=== PATIENT | female | born 1955 | race Caucasian/White ===

== ENCOUNTER 2022-11-14 17:22 | Emergency (ER) | payer MEDICARE ==
[2022-11-14 18:05] LABS: BASOPHILS % (AUTO) 0.2 %; EOSINOPHILS # (AUTO) 0.1 10^3/uL (0.0-0.7); EOSINOPHILS % (AUTO) 0.4 %; HCT - HEMATOCRIT 45.9 % (37.0-47.0); HGB - HEMOGLOBIN 15.7 g/dL (12.0-16.0); LYMPHOCYTES # (AUTO) 1.9 10^3/uL (1.5-3.5); LYMPHOCYTES % (AUTO) 13.7 %; MEAN CORPUSCULAR HEMOGLOBIN 29.4 pg (27.0-31.0); MEAN CORPUSCULAR HGB CONC 34.2 g/dL (32.0-36.0); MEAN PLATELET VOLUME 9.9 fL (7.9-10.8); MONOCYTES # (AUTO) 0.7 10^3/uL (0.0-1.0); MONOCYTES % (AUTO) 5.3 %; NEUTROPHILS # (AUTO) 11.2 10^3/uL (1.5-6.6); NEUTROPHILS % (AUTO) 80.1 %; PLT - PLATELET COUNT 268 10^3/uL (130-450); RED BLOOD COUNT 5.34 10^6/uL (4.20-5.40); RED CELL DISTRIBUTION WIDTH 12.5 % (12.0-15.0); WHITE BLOOD COUNT 13.9 x10^3/uL (4.8-10.8)
[2022-11-14 18:07] LABS: BILIRUBIN,URINE NEGATIVE (NEGATIVE); GLUCOSE, URINE (UA) NEGATIVE (NEGATIVE); KETONES,URINE (UA) TRACE mg/dL (NEGATIVE); LEUKOCYTE ESTERASE, URINE SMALL (NEGATIVE); NITRITE,URINE NEGATIVE (NEGATIVE); OCCULT BLOOD,URINE TRACE-INTA (NEGATIVE); PH,URINE 5.5 PH (5.0-7.5); PROTEIN,URINE NEGATIVE (NEGATIVE); UROBILINOGEN,URINE 0.2 (NORMAL) E.U./dL (NORMAL)
[2022-11-14 18:09] LABS: CLARITY,URINE CLEAR (CLEAR)
[2022-11-14 18:18] LABS: BACTERIA,URINE Rare /HPF (None Seen); EPITHELIAL CELLS,UR FEW Transitional /HPF (<= Few); RBC,URINE 0-5 /HPF (0-5); SQUAMOUS EPITHELIAL CELL,UR FEW Squamous (<= Few)
[2022-11-14 18:18] LABS: ALBUMIN 4.8 g/dL (3.2-5.5); ALBUMIN/GLOBULIN RATIO 1.8 (1.0-2.2); BILIRUBIN,TOTAL 1.9 mg/dL (0.2-1.0); CALCIUM 11.3 mg/dL (8.5-10.3); CREATININE 0.7 mg/dL (0.6-1.3); POTASSIUM 3.9 mmol/L (3.5-4.5); TOTAL PROTEIN 7.4 g/dL (6.4-8.9)
[2022-11-14] MEDS ORDERED: HYDROmorphone 1 MG/ML CARPUJECT IVP STA (19:47)
[2022-11-14] MEDS ORDERED: ONDANSETRON 4 MG/2 ML VIAL IVP STA (19:47)
[2022-11-14] MEDS ORDERED: SODIUM CHLORIDE 0.9% 1,000 ML IV STA (19:47)
--- NOTE | 2022-11-14 19:49 | ED Physician Documentation ---
History of Present Illness - Stated complaint Stated Complaint: ABD PX/FEVER - Chief complaint Chief Complaint: Abd Pain - Additonal information Additional information: Our CT scanner is down is frustrated. 67-year-old female presents emergency department for evaluation 67-year-old male presents emergency department for evaluation of acute right lower quadrant abdominal pain. Symptoms began 24 hours is generalized but is now settled in the right lower quadrant. Low-grade temperature elevations but no fevers. Some nausea but no vomiting. No diarrhea. No urinary symptoms. Past surgical history positive for previous hysterectomy. She does have a history of diverticulitis without perforation. Patient takes losartan and Wellbutrin. No anticoagulation. Review of Systems Constitutional: reports: Fever Cardiac: reports: Reviewed and negative Respiratory: reports: Reviewed and negative GI: reports: Abdominal Pain, Nausea. denies: Vomiting : reports: Reviewed and negative PD PAST MEDICAL HISTORY - Present Medications Home Medications: Ambulatory Orders Medication Instructions Recorded Confirmed Losartan [Cozaar] 10 mg PO DAILY 11/14/22 11/14/22 buPROPion [Wellbutrin Sr] 150 mg PO BID 11/14/22 11/14/22 - Allergies Allergies/Adverse Reactions: Allergies Allergy/AdvReac Type Severity Reaction Status Date / Time Sulfa (Sulfonamide Allergy Unknown Verified 11/14/22 17:47 Antibiotics) PD ED PE NORMAL - General General: Alert and oriented X 3, No acute distress - Cardiac Cardiac: RRR - Respiratory Respiratory: No respiratory distress, Clear bilaterally - Abdomen Abdomen: Normal bowel sounds, Soft. No: Non tender (Rebound tenderness to the right lower quadrant. Equivocal McBurney's. No CVA tenderness.) - Back Back: No CVA TTP - Derm Derm: Normal color, Warm and dry - Extremities Extremities: No deformity - Neuro Neuro: Alert and oriented X 3 Eye Opening: Spontaneous Motor: Obeys Commands Verbal: Oriented GCS Score: 15 Results - Vitals Vitals: Vital Signs - 24 hr 11/14/22 17:44 Temperature 36.6 C Heart Rate 120 H Respiratory 20 Rate Blood Pressure 119/73 O2 Saturation 97 Oxygen O2 Source Room air - Labs Labs: Laboratory Tests 11/14/22 11/14/22 11/14/22 17:58 18:00 18:00 WBC 13.9 H RBC 5.34 Hgb 15.7 Hct 45.9 MCV 86.0 MCH 29.4 MCHC 34.2 RDW 12.5 Plt Count 268 MPV 9.9 Neut # (Auto) 11.2 H Lymph # (Auto) 1.9 [place] # (Auto) 0.7 Eos # (Auto) 0.1 Baso # (Auto) 0.0 Absolute Nucleated RBC 0.00 Nucleated RBC % 0.0 Sodium 138 Potassium 3.9 Chloride 102 Carbon Dioxide 29 Anion Gap 7.0 BUN 11 Creatinine 0.7 Estimated GFR (MDRD) 83 L Glucose 114 H Calcium 11.3 H Total Bilirubin 1.9 H AST 12 ALT 18 Alkaline Phosphatase 80 Total Protein 7.4 Albumin 4.8 Globulin 2.6 Albumin/Globulin Ratio 1.8 Lipase 16 Urine Color YELLOW Urine Clarity CLEAR Urine pH 5.5 Ur Specific [place] >=1.030 H Urine Protein NEGATIVE Urine Glucose (UA) NEGATIVE Urine Ketones TRACE Urine Occult Blood TRACE-INTA Urine Nitrite NEGATIVE Urine Bilirubin NEGATIVE Urine Urobilinogen 0.2 (NORMAL) Ur Leukocyte Esterase SMALL H Urine RBC 0-5 Urine WBC 6-10 H Ur Epithelial Cells FEW Transitional Ur Squamous Epith Cells FEW Squamous Urine Bacteria Rare Ur Microscopic Review INDICATED Urine Culture Comments INDICATED PD Medical Decision Making - ED course Complexity details: reviewed results, re-evaluated patient, d/w patient ED course: 67-year-old female presents emergency department for evaluation of acute abdominal pain that is settled in the right lower quadrant. Symptoms began about 24 hours ago. Low-grade temperature elevations but no fevers. Some nausea no vomiting. No diarrhea. No urinary symptoms. On exam she has some rebound tenderness equivocal McBurney's the right lower quadrant concerning for acute appendicitis. We did obtain CBC and electrolytes. Per my interpretation mild leukocytosis with white count of 14,000. Electrolytes show mild calcium elevation 11.3 and a bilirubin of 1.9. Urinalysis is not consistent with acute cystitis. Here in the emergency department she did receive a liter of IV fluids as well as a single dose of Dilaudid and Zofran. She did present as tachycardic but on reevaluation her heart rate had normalized. Normotensive. Unfortunately our CT scanner is down. She will certainly requires advanced im aging for further evaluation of this abdominal pain. As such I have spoken with Dr. Aaron Shah, ED physician/attending at [facility] in [place]. He graciously accepts the patient in direct ED to ED transfer. I have discussed the plan and findings with the patient and her daughter and they are in agreement. Appropriate [employer] paperwork was completed. Departure - Departure Disposition: 02 Transfer Acute Care Hosp Clinical Impression: RLQ abdominal pain Condition: Stable Record reviewed to determine appropriate education?: Yes
[2022-11-14 21:04] VITALS: BP 113/69; O2SAT 94
== END 2022-11-14 21:12 | disposition short-term general hospital (02) ==
LOC: ED 17:22
DX: R10.31 Right lower quadrant pain (principal); R00.0 Tachycardia, unspecified
CPT/HCPCS: 36415; 80053; 81001; 83690; 85025; 87086; 96361; 96374; 99284; 99285; J1170; 81003

== ENCOUNTER 2022-11-14 20:58 | Outpatient (CLI) | payer MEDICARE | END 2022-11-14 23:59 | disposition short-term general hospital (02) | LOC: EMS 20:58 | PROVIDERS: ATTEND Registered Nurse | DX: R10.31 Right lower quadrant pain (principal); I10 Essential (primary) hypertension | CPT/HCPCS: A0425; A0428 ==